=== PATIENT | male | born 1950 | race Caucasian/White ===

== ENCOUNTER → 2018-08-04 | Outpatient (CLI) | payer OTHER | LOC: CAT | DX: Z12.31 Encounter for screening mammogram for malignant neoplasm of breast (principal); E78.00 Pure hypercholesterolemia, unspecified ==

== ENCOUNTER → 2018-08-04 | Outpatient (CLI) | payer BC ==
--- NOTE | ~2018-08-04 | EXE ---
[facility] [employer] [address] STRESS ECHOCARDIOGRAM Name: BOONE LEGER Room #: REG [id number] Admission: 08/04/18 Attend Phys: Boone Lance Discharge: Date of : 54 Date of Service: 08/04/18 1129 Report #: [id number] THIS REPORT FOR: //name// APPROVED REPORT Study performed: 08/04/2018 09:06:44 Exam: Stress Echocardiogram Indication: Chest pain Patient Location: Out-Patient Stress Nurse: Phyllis Gaitan RN Status: routine Ht: 6 ft 1 in HR: 55 bpm BP: 138/76 mmHg Rhythm: NSR Medical History Medications: Listed on worksheet Allergies: Morphine Cardiac Risk Factors: HTN, Hyperlipidemia Procedure The patient underwent an Exercise Stress Test using the Brennan Protocol. Blood pressure, heart rate, and EKG were monitored. An Echocardiogram was performed by radiologic technician in four stages in quad fashion. At peak stress, four selected images were obtained and placed side by side with resting images for comparison. Stress Test Details Stress Test: Exercise stress testing was performed using a Brennan protocol. HR Resting HR: 55 bpm Max Heart Rate (APMHR): 155 bpm Max HR Achieved: 157 bpm Target HR (85% APMHR): 131 bpm % of APMHR: 101 Recovery HR: 74 bpm HR response to stress: Normal HR response to stress BP Resting BP: 138/76 mmHg Max BP: 192/80 mmHg Recovery BP: 124/70 mmHg ECG [facility] [address] [place] [address] STRESS ECHOCARDIOGRAM Name: BOONE LEGER Room #: REG Saqib#: [id number] Admission: 08/04/18 Attend Phys: Boone Lance Discharge: Date of : 54 Date of Service: 08/04/18 1129 Report #: [id number] Resting ECG: Sinus Rhythm Stress ECG: Sinus Tachycardia ST Change: Horizontal ST depression Maximum ST Deviation: 1 mm Arrhythmia: None Recovery ECG: Sinus Rhythm Clinical Reason for Termination: Completed protocol Stress Symptoms: Leg Fatigue Exercise duration: 9 min 9 sec Highest Stage Achieved: Stage 4: 4.2 mph at 16% grade. Exercise capacity: 10.10 METs Stress ECG Conclusion 1. SUBJECTIVELY NEGATIVR FOR ISCHEMIA 2. ELECTROCARDIOGRAPHICALLY ABNORMAL WITH ST SEGMENT SHIFT SUGGESTIVE OF ISCHEMIA IN THE LATERAL LEADS 3. SATISFACTORY FUNCTIONAL CAPACITY Pre-Stress Echo The resting Echocardiogram showed normal left ventricular contractility with an estimated Ejection Fraction of about 55-60%. No significant valvular abnormalities. Post-Stress Echo The stress Echocardiogram showed normal left ventricular contractility with an estimated Ejection Fraction of about 60-65%. Normal augmentation of wall motion in all segments on post stress images. Conclusion Clinical Response: Non-ischemic Exercise Capacity: SATISFACTORY Stress ECG Response: Ischemic Stress Echo Images: Non-ischemic 1. LOW RISK STUDY Other Information Study Quality: Good [facility] [address] [place] [address] STRESS ECHOCARDIOGRAM Name: BOONE LEGER Room #: REG CL Saqib#: [id number] Admission: 08/04/18 Attend Phys: Boone Lance Discharge: Date of : 54 Date of Service: 08/04/18 1129 Report #: [id number] <Conclusion> 1. LOW RISK STUDY <ELECTRONICALLY SIGNED> By: Michael Pereira MD 08/04/18 1129 1129 28 Michael Pereira MD /INF
== END ==
LOC: CV 08:21
DX: R07.9 Chest pain, unspecified (principal); I10 Essential (primary) hypertension; E78.5 Hyperlipidemia, unspecified

== ENCOUNTER → 2020-07-21 | Outpatient (CLI) | payer BC ==
[~2020-07-21] MED LIST: ALMOTRIPTAN M12.5 MG PO; CO-ENZYME Q-1010 MG PO; FISH OIL 1,0001 EAC9 PO; FLAXSEED OIL1000 MG PO; LISINOPRIL10 MG PO; MAGNESIUM250 M1 PO; MULTI VITAMIN1 EACH PO; ROSUVASTATIN CA20 MG PO; ST. JOSEPH ASPI81 MG PO; SUMATRIPTAN SU100 MG PO; TAMSULOSIN HCL0.4 MG PO; TERBINAFINE HC250 MG PO; [UNRECOGNIZED DRUG - OTHER] PO
== END ==
LOC: LAB 11:10
PROVIDERS: ATTEND Surgery
DX: Z01.812 Encounter for preprocedural laboratory examination (principal); Z20.828 Contact with and (suspected) exposure to other viral communicable diseases

== ENCOUNTER 2020-07-24 07:38 | Day surgery (SDC) | payer BC ==
[~2020-07-24] VITALS: Ht 185.4 cm; Wt 81.6 kg
--- NOTE | ~2020-07-24 | O ---
[facility] [place] [address] OPERATIVE REPORT Name: DANA LEGER Room #: DEP [facility].#: [id number] Admission: 07/24/20 Attend Phys: Lino Nowak MD Discharge: 07/24/20 Date of : 54 Report #: [id number] THIS REPORT FOR: cc: Solo Rayo James A. DO Chu, Peter Y. MD ~ CC: Solo Carr DATE OF SERVICE: 07/24/2020 PREOPERATIVE DIAGNOSIS: Left inguinal hernia. POSTOPERATIVE DIAGNOSIS: Left indirect inguinal hernia. PROCEDURE PERFORMED: Laparoscopic properitoneal repair of left inguinal hernia with large 3DMax lightweight mesh. ANESTHESIA: General. SURGEON: Lino Nowak M.D. COMPLICATIONS: None. ESTIMATED BLOOD LOSS: 5 mL. PROCEDURE NOTE: With the patient under general anesthesia, timeout was performed. Pop catheter was placed. Abdomen prepped and draped in sterile fashion. IV antibiotic was administered. A 0.25% Marcaine was used to anesthetize skin adjacent to the umbilicus on the left side. After dissecting through the skin, subcutaneous tissue, fascia identified. Fascia was opened under visualization. The rectus muscle was spread along the length of its fiber. The posterior fascia was identified. The space between the muscle and the posterior fascia was dissected inferiorly. A balloon trocar was placed in the space. The CO2 was placed. About 2 inches below the umbilicus, a 5-mm trocar was placed in the properitoneal space under visualization. The rest of properitoneal space was opened up with cautery and blunt dissection using a blunt dissector. The inferior epigastric vessel was identified. The patient did have an indirect hernia sac over the cord. A second 5-mm trocar was placed about an inch and a half below the initial 5-mm trocar slightly right at the midline. This was placed into the properitoneal space under visualization. Dissection was then carried out freeing the hernia sac from the underlying cord. A moderate size indirect hernia sac was found. The sac was completely dissected off the cord down to the base of the cord structure. Internal ring was identified. There is a defect seen in the internal ring where the sac was [facility] [address] [place] [address] OPERATIVE REPORT Name: DANA LEGER Room #: DEP [facility] M.R.#: [id number] Admission: 07/24/20 Attend Phys: Lino Nowak MD Discharge: 07/24/20 Date of : 54 Report #: [id number] located. The lateral wall seems to be intact. A large 3DMax lightweight mesh was placed through the balloon trocar and then opened in the properitoneal space. The mesh was seated properly. The mesh was tacked laterally with SorbaFix to the wall, inferomedially to the Dony's ligament above the pubic bone and then superomedially to the rectus muscle. The mesh seated well. The hernia sac identified and excluded from the mesh and the internal ring. CO2 was evacuated. Trocars were removed under visualization. Skin was irrigated. The posterior fascia at the umbilical level was opened and the peritoneum was opened, releasing the air that was inside the peritoneal cavity. This posterior fascia was closed with [id number] 0 Vicryl. The anterior fascia that was opened originally was closed with [id number] 0 Vicryl x 2. Skin was irrigated and closed with 5-0 PDS. Steri-Strip, Band-Aids applied. The patient tolerated the procedure well and was taken to recovery room. By: [id number] Lino Nowak MD /nt
--- NOTE | ~2020-07-24 | H ---
[facility] [place] [address] HISTORY AND PHYSICAL Name: DANA LEGER Room #: PRE [facility] M.R.#: [id number] Admission: Attend Phys: Lino Nowak MD Discharge: Date of : 54 Report #: [id number] THIS REPORT FOR: cc: Solo Rayo James A. DO Chu, Peter Y. MD ~ CC: Solo Carr PREOPERATIVE DIAGNOSIS: Left inguinal hernia. HISTORY OF PRESENT ILLNESS: The patient is a 69-year-old who has been noticing a discomfort in the left groin for about a year. It feels like a tickling feeling. The discomfort has gotten worse. He finds it difficult to sit. He rides his bike quite a bit. When he is riding, he does not seem to have any problem. He has been avoiding lifting. The patient says the hernia is getting larger. He has to push it back in. There is family history of hernia with his dad having complicated hernia surgeries. No nausea history. No vomiting. The patient does complain of being gassy and when he is gassy, he does have more discomfort in the left groin. The patient does not have any problem with bowel movements. No straining with that. Mild difficulty urinating. No prior hernia surgery. The patient was examined and confirmed to have a left inguinal hernia. Because of symptomatic nature, he is recommended to have this repaired. PAST MEDICAL HISTORY: The patient has a history of migraine last 3-4 months. History of high blood pressure, history of elevated cholesterol, history of basal cell skin cancer. Denies diabetes, denies heart disease, denies lung disease, denies liver disease, denies bleeding disorder, denies history of any blood clot. 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 PAST SURGICAL HISTORY: Gallbladder surgery. He has had a vein closure procedure, sinus surgery. MEDICATIONS: The patient takes lisinopril, simvastatin. FAMILY HISTORY: No other family history of any significance. SOCIAL HISTORY: He does not smoke, rarely drinks. REVIEW OF SYSTEMS: No shortness of breath. No chest pain, no numbness or weakness. PHYSICAL EXAMINATION: GENERAL: The patient is well-nourished male in no acute distress. HEENT: Pupils are equal, round, reactive to light. Extraocular muscles are intact. [facility] [address] [place] [address] HISTORY AND PHYSICAL Name: DANA LEGER Room #: PRE [facility] M.R.#: [id number] Admission: Attend Phys: Lino Nowak MD Discharge: Date of : 54 Report #: [id number] NECK: Soft and supple, no masses. LUNGS: Clear to auscultation. HEART: Regular rate and rhythm. No murmur or gallop. ABDOMEN: Soft. No mass, guarding. No ascites. GENITOURINARY: Groin area, the patient does have a left inguinal hernia, which is reducible. Testicles are normal. No hernia on the right side. EXTREMITIES: No cyanosis, clubbing or edema. NEUROLOGIC: Motor and sensory exams normal. IMPRESSION: The patient is a 69-year-old with symptomatic left inguinal hernia. The patient has had it for about a year and is having increasing discomfort. He finds it difficult to sit with a hernia. It is reducible. The patient is here for repair. PLAN: The patient is undergoing laparoscopic hernia surgery tomorrow. Procedure is discussed in detail. Laparoscopic properitoneal approach was discussed. Use of mesh was discussed. Risk of the procedure including bleeding and mesh infection and hernia recurrence was discussed. The patient wishes to proceed. By: 16 28 Lino Nowak MD /nt
[2020-07-24 08:15] LABS: HEMATOCRIT 38.3 % (42.0-52.0); HEMOGLOBIN 12.2 gm/dL (14.0-18.0); MCH 19.3 pg (26.0-34.0); MCHC 31.7 g/dL (28.0-37.0); MCV 60.8 fL (80.0-100.0); RBC 6.3 mil/uL (4.50-6.00); RDW 17.1 % (10.5-14.5); WBC 5.3 thou/uL (4.0-11.0)
[2020-07-24 08:26] VITALS: BP 142/71
[2020-07-24] MEDS ORDERED: HYDROCODON-ACE1 EAC7 PO (11:33)
[2020-07-24 11:47] VITALS: BP 142/71
== END 2020-07-24 12:20 | disposition home or self-care (01) ==
LOC: TBA 07:38 → OR 07:38
PROVIDERS: ATTEND Surgery
DX: K40.90 Unilateral inguinal hernia, without obstruction or gangrene, not specified as recurrent (principal); I10 Essential (primary) hypertension; E78.00 Pure hypercholesterolemia, unspecified; E78.5 Hyperlipidemia, unspecified; D64.9 Anemia, unspecified; G43.909 Migraine, unspecified, not intractable, without status migrainosus; Z98.890 Other specified postprocedural states; Z79.899 Other long term (current) drug therapy; Z79.82 Long term (current) use of aspirin; Z85.828 Personal history of other malignant neoplasm of skin; Z90.49 Acquired absence of other specified parts of digestive tract; Z88.8 Allergy status to other drugs, medicaments and biological substances
CPT/HCPCS: 50010; 50101; 50411; 50455; 50507; 50555; 50848; 52265; 53065; 53307; 56525; 56526; 62110; 62900; 65130; 70005

== ENCOUNTER 2020-07-25 13:19 | Emergency (ER) | payer BC ==
[~2020-07-25] VITALS: Ht 185.4 cm; Wt 81.7 kg
[~2020-07-25 13:19] MED LIST changes: +HYDROCODON-ACE1 EAC7 PO
[2020-07-25 13:37] LABS: URINE BILIRUBIN NEGATIVE (Negative); URINE BLOOD TRACE (Negative); URINE CLARITY CLEAR; URINE COLOR YELLOW; URINE GLUCOSE-RANDOM* NEGATIVE (Negative); URINE KETONES TRACE (Negative); URINE LEUKOCYTES-REFLEX NEGATIVE (Negative); URINE NITRITE-REFLEX NEGATIVE (Negative); URINE PROTEIN (DIPSTICK) NEGATIVE (Negative); URINE UROBILINOGEN 0.2 E.U./dl (0.2-1.0)
[2020-07-25 16:50] VITALS: BP 116/67
== END 2020-07-25 16:51 | disposition home or self-care (01) ==
LOC: ER 13:19
PROVIDERS: Nurse Practitioner
DX: R33.9 Retention of urine, unspecified (principal); I10 Essential (primary) hypertension; E78.5 Hyperlipidemia, unspecified; G43.909 Migraine, unspecified, not intractable, without status migrainosus; Z90.49 Acquired absence of other specified parts of digestive tract; Z79.82 Long term (current) use of aspirin; Z79.899 Other long term (current) drug therapy; Z88.5 Allergy status to narcotic agent

== ENCOUNTER 2020-07-28 17:08 | Emergency (ER) | payer BC ==
[~2020-07-28] VITALS: Ht 185.4 cm; Wt 80.7 kg
[2020-07-28 18:32] LABS: HEMATOCRIT 34.2 % (42.0-52.0); HEMOGLOBIN 11.2 gm/dL (14.0-18.0); MCH 19.6 pg (26.0-34.0); MCHC 32.7 g/dL (28.0-37.0); MCV 60.1 fL (80.0-100.0); RBC 5.69 mil/uL (4.50-6.00); RDW 16.3 % (10.5-14.5); WBC 6.4 thou/uL (4.0-11.0)
[2020-07-28 18:40] LABS: URINE BILIRUBIN NEGATIVE (Negative); URINE BLOOD NEGATIVE (Negative); URINE CLARITY CLEAR; URINE COLOR YELLOW; URINE GLUCOSE-RANDOM* NEGATIVE (Negative); URINE KETONES NEGATIVE (Negative); URINE LEUKOCYTES-REFLEX NEGATIVE (Negative); URINE NITRITE-REFLEX NEGATIVE (Negative); URINE PROTEIN (DIPSTICK) NEGATIVE (Negative); URINE UROBILINOGEN 0.2 E.U./dl (0.2-1.0)
[2020-07-28 18:46] LABS: CALCIUM 9.2 mg/dL (8.5-10.1); POTASSIUM 3.7 mmol/L (3.5-5.1)
[2020-07-28] MEDS ORDERED: FLOMAX0.4 MG PO (18:51)
[2020-07-28 19:14] VITALS: BP 125/72
== END 2020-07-28 19:14 | disposition home or self-care (01) ==
LOC: ER 17:08
PROVIDERS: Physician Assistant
DX: R33.9 Retention of urine, unspecified (principal); I10 Essential (primary) hypertension; E78.5 Hyperlipidemia, unspecified; G43.909 Migraine, unspecified, not intractable, without status migrainosus; Z90.49 Acquired absence of other specified parts of digestive tract; Z79.82 Long term (current) use of aspirin; Z79.899 Other long term (current) drug therapy; Z88.5 Allergy status to narcotic agent